=== PATIENT | female | born 1975 | race Caucasian/White ===

== ENCOUNTER 2021-01-01 11:00 | Emergency (ER) | payer BC ==
[~2021-01-01] VITALS: Ht 162.6 cm; Wt 77.1 kg
[2021-01-01] MEDS ORDERED: ONDANSETRON 4 MG/2 ML VIAL IM ONE (11:15)
[2021-01-01] MEDS ORDERED: HYDROMORPHONE 1 MG/1 ML DISP.SYRIN IM ONE (11:15)
[2021-01-01] MEDS ORDERED: HYDROMORPHONE 2 MG/1 ML DISP.SYRIN ONE (11:17)
[2021-01-01] MEDS ORDERED: ONDANSETRON 4 MG/2 ML VIAL ONE (11:17)
--- NOTE | 2021-01-01 11:19 | NUR ---
pt bib ra 85 from home co her j-tube coming out accidentally at home. pt reports that the stoma and the area around it is tender and pt does not want to be touched at this point. pt states will follow up with own pmd regarding j-tube placement. pt expectation of this visit is pain management.
--- NOTE | 2021-01-01 11:32 | NUR ---
Patient discharged to home in stable condition. Written and verbal after care instructions given. Patient verbalizes understanding of instructions. Stressed follow up or return to ER for worsening s/s.pt at the door to take the pt home.
[2021-01-01 11:33] VITALS: BP 109/81
== END 2021-01-01 11:46 | disposition home or self-care (01) ==
LOC: ER 11:00
DX: R10.9 Unspecified abdominal pain (principal); Z93.4 Other artificial openings of gastrointestinal tract status; R11.0 Nausea; Z86.69 Personal history of other diseases of the nervous system and sense organs
CPT/HCPCS: 96372 ×2; 99284; J1170; J2405; A4663

== ENCOUNTER 2021-07-07 00:41 | Emergency (ER) | payer BC ==
[~2021-07-07] VITALS: Ht 162.6 cm; Wt 81.6 kg
[2021-07-07] MEDS ORDERED: ONDANSETRON 4 MG/2 ML VIAL IV ONE ×2 (01:00→02:00)
[2021-07-07] MEDS ORDERED: HYDROMORPHONE 1 MG/1 ML DISP.SYRIN IV ONE ×3 (01:00→01:30)
--- NOTE | 2021-07-07 01:05 | NUR ---
Inserted chavez needle 19g in r chest portacat, ok'd by Dr. De La Garza.
[2021-07-07] MEDS ORDERED: ONDANSETRON 4 MG/2 ML VIAL ONE ×3 (01:08→02:12)
[2021-07-07] MEDS ORDERED: HYDROMORPHONE 1 MG/1 ML DISP.SYRIN ONE ×2 (01:08→01:13)
[2021-07-07 01:28] LABS: HEMATOCRIT 32.1 % (31.2-41.9); MEAN CORPUSCULAR HEMOGLOBIN 22.6 uug (24.7-32.8); MEAN CORPUSCULAR VOLUME 70.5 fL (75.5-95.3); PLATELET COUNT (AUTO) 469 K/uL (179-408)
[2021-07-07] MEDS ORDERED: TETRACAINE HCL 0.5% OPHT DROP 2 ML BOTTLE OP ONE (01:30)
[2021-07-07 01:31] LABS: BILIRUBIN,DIRECT 0.1 mg/dL (0.0-0.2); BILIRUBIN,TOTAL 0.2 mg/dL (0.2-1.0); CREATININE 0.7 mg/dL (0.6-1.3); POTASSIUM 3.6 mmol/L (3.5-5.1); TOTAL PROTEIN, SERUM 7.5 g/dL (6.4-8.2)
[2021-07-07] MEDS ORDERED: HYDROMORPHONE 2 MG/1 ML DISP.SYRIN ONE (01:33)
[2021-07-07] MEDS ORDERED: PROPARACAINE 0.5% OPHT DROP 15 ML BOTTLE ONE (01:39)
[2021-07-07] MEDS ORDERED: TETRACAINE HCL 0.5% OPHT DROP 2 ML BOTTLE ONE (01:40)
[2021-07-07] MEDS ORDERED: MORPHINE SULFATE 4 MG/1 ML DISP.SYRIN IV ONE ×2 (01:45→02:00)
[2021-07-07] MEDS ORDERED: MORPHINE SULFATE 2 MG/1 ML DISP.SYRIN ONE ×2 (01:51→02:09)
[2021-07-07] MEDS ORDERED: MORPHINE SULFATE 4 MG/1 ML DISP.SYRIN ONE ×2 (01:51→01:59)
[2021-07-07 01:54] LABS: NEUTROPHILS % (MANUAL) 0 % (42-75)
[2021-07-07] MEDS ORDERED: MORPHINE SULFATE 2 MG/1 ML DISP.SYRIN IV ONE (02:00)
--- NOTE | 2021-07-07 02:10 | NUR ---
19 guage chavez needle to right chest wall was d/c.
--- NOTE | 2021-07-07 02:23 | NUR ---
Patient does not wish to proceed with medical care recommended by Dr. De La Garza. Patient given information related to possible complications, up to and including , which could occur as a result of leaving the hospital at this time. Patient verbalizes understanding of risks involved due to leaving against medical advice. Patient has signed AMA form.
[2021-07-07 02:25] VITALS: BP 133/78
[2021-07-07] MEDS ORDERED: IV NORMAL SALINE 1000 ML BAG IV ONE (02:30)
== END 2021-07-07 02:26 | disposition left against medical advice (07) ==
LOC: ER 00:47
DX: R51.9 Headache, unspecified (principal); D75.839 Thrombocytosis, unspecified; H54.7 Unspecified visual loss; Z88.0 Allergy status to penicillin; Z88.8 Allergy status to other drugs, medicaments and biological substances; G90.50 Complex regional pain syndrome I, unspecified; G50.0 Trigeminal neuralgia
CPT/HCPCS: 36415; 70450; 80048; 80076; 85007; 85025; 96361; 96374; 96375; 96376; 99285; J1170 ×3; J2270 ×4; J2405 ×3; 70030-TC; A4663; J7030

== ENCOUNTER 2021-10-12 17:08 | Inpatient (IN) | payer BC ==
[~2021-10-12] VITALS: Ht 162.6 cm; Wt 81.6 kg
[2021-10-12] MEDS ORDERED: HYDROMORPHONE 1 MG/1 ML DISP.SYRIN IV ONE ×2 (17:30→18:30)
[2021-10-12] MEDS ORDERED: HYDROMORPHONE 1 MG/1 ML DISP.SYRIN ONE ×2 (17:48→18:37)
[2021-10-12 18:03] LABS: HEMATOCRIT 38.1 % (31.2-41.9); MEAN CORPUSCULAR HEMOGLOBIN 25.4 uug (24.7-32.8); MEAN CORPUSCULAR VOLUME 77.8 fL (75.5-95.3); PLATELET COUNT (AUTO) 385 K/uL (179-408)
[2021-10-12 18:14] LABS: ALANINE AMINOTRANSFERASE 14 U/L (14-59); ALKALINE PHOSPHATASE 95 U/L (50-136); ASPARTATE AMINOTRANSFERASE 13 U/L (15-37); BILIRUBIN,TOTAL 0.1 mg/dL (0.2-1.0); CARBON DIOXIDE 23 mmol/L (21-32); CHLORIDE 106 mmol/L (98-107); CREATININE 0.6 mg/dL (0.6-1.3); GLUCOSE 116 mg/dL (74-106); TOTAL PROTEIN, SERUM 7.5 g/dL (6.4-8.2); UREA NITROGEN, BLOOD 9 mg/dL (7-18)
[2021-10-12] MEDS ORDERED: SWABABLE VALVE TRANSFER SET EA MC ONE (18:14)
[2021-10-12] MEDS ORDERED: IV NORMAL SALINE 250 ML IV ONE (18:14)
[2021-10-12] MEDS ORDERED: IOHEXOL 350 100 ML INFUS..BTL ONE (18:14)
--- NOTE | 2021-10-12 18:45 | NUR ---
After CT scan, patient was tearful. "I think the burning pains from the contrast made it worse." per patient's verbalization. MD notified. Additional IV Dilaudid was given as ordered by .
[2021-10-12] MEDS ORDERED: LORAZEPAM 2 MG/1 ML VIAL ONE (18:53)
--- NOTE | 2021-10-12 19:04 | NUR ---
Patient is waiting for ultrasound imaging, tests' results and disposition, nursing SBAR given to BEN Lopez.
--- NOTE | 2021-10-12 19:07 | NUR ---
RECEIVED REPORT FROM BEN GARCIA. PT NOTED TO BE IN BED A/O X4, NO SOB OR LABORED BREATHING, AFEBRILE.
[2021-10-12] MEDS ORDERED: KETAMINE HCL 500 MG/10 ML INJ IV ONE ×2 (19:30→20:45)
[2021-10-12] MEDS ORDERED: KETAMINE HCL 500 MG/10 ML INJ ONE ×2 (19:32→20:49)
--- NOTE | 2021-10-12 19:40 | NUR ---
US (YUNIER) AT BEDSIDE.
--- NOTE | 2021-10-12 20:34 | NUR ---
DR. YOUNG SPOKE WITH JOSIANE FOR ADMISSION.
[2021-10-12] MEDS ORDERED: ENOXAPARIN SODIUM 80 MG/0.8 ML DISP.SYRIN SQ ONE ×2 (20:45→20:48)
[2021-10-12] MEDS ORDERED: CLONIDINE HCL 0.1 MG TABLET PO ONE (21:30)
[2021-10-12] MEDS ORDERED: CLONIDINE HCL 0.1 MG TABLET ONE (21:33)
[2021-10-12] MEDS ORDERED: PROM25TA15 PO (22:02)
[2021-10-12] MEDS ORDERED: CLON0.1T PO (22:02)
[2021-10-12] MEDS ORDERED: GABA600T12 PO (22:02)
[2021-10-12] MEDS ORDERED: METO-295 PO (22:02)
[2021-10-12] MEDS ORDERED: AMIT75TA2 PO (22:02)
[2021-10-12] MEDS ORDERED: KETAMINE PO (22:02)
[2021-10-12] MEDS ORDERED: ONDA4TAB5 PO (22:02)
--- NOTE | 2021-10-12 22:02 | NUR ---
GAVE REPORT TO BEN OLMOS.
[2021-10-12] MEDS ORDERED: DEXTROMETHORPHAN PO (22:11)
[2021-10-12] MEDS ORDERED: ACETAMINOPHEN 325 MG TABLET PO PRN (22:15)
[2021-10-12] MEDS ORDERED: GABAPENTIN 400 MG CAPSULE PO ONE (22:15)
[2021-10-12] MEDS ORDERED: ONDANSETRON 4 MG/2 ML VIAL IV PRN (22:15)
[2021-10-12] MEDS ORDERED: METOCLOPRAMIDE HCL 10 MG TABLET PO PRN (22:15)
[2021-10-12] MEDS ORDERED: MAGNESIUM HYDROXIDE 30 ML LIQUID UDC PO PRN (22:15)
--- NOTE | 2021-10-12 22:20 | NUR ---
ADMITTED ON TELE FLOOR UNDER JOSIANE, ALERT ORIENTED, SOB NO CHEST PAIN, TELE SINUS RHYTHM 95, EPISODE OF TACHY 111, PATIENT R UPPER ARM SWOLLEN, DX OF R ARM DVT, SEVERE PAIN, PATIENT HAS R CHEST CHERELLE CATH. CONT ON PAIN MANAGEMENT.
--- NOTE | 2021-10-12 22:29 | NUR ---
Pt. admitted to TELE , under care of Dr. JOSHUA Dx: RT upper extremity DVT and intractable pain Belongs List completed Pt admitted in stable condition, no SOB or labored breathing, denies any pain/discomfort upon admission.
[2021-10-12 22:44] VITALS: BP 147/86
[2021-10-12] MEDS: HYDROMORPHONE 1 MG/1 ML DISP.SYRIN IV PRN (23:06)
--- NOTE | 2021-10-13 | NUR ---
Assumed care of patient from BEN Oneill. Received patient lying in bed. AAOx4. In no apparent distress. Denies any SOB. Warm pack on right upper arm. Sinus tachy on tele with HR of 105/min. Post on right upper chest area intact. IV site on left AC intact and patent. Needs assessed and attended to. Continue to monitor.
[2021-10-13 00:22] VITALS: BP 118/55
[2021-10-13] MEDS: HYDROMORPHONE 1 MG/1 ML DISP.SYRIN IV PRN ×3 (02:23→10:05)
[2021-10-13 04:49] VITALS: BP 116/48
[2021-10-13] MEDS: PANTOPRAZOLE SODIUM 40 MG TABLET.DR PO SCH ×2 (05:53→07:10)
--- NOTE | 2021-10-13 06:53 | NUR ---
PATIENT ALERT ORIENTED, NO SOB NO CHEST PAIN, TELE MONITOR SINUS RHYTHM, CONT ON PAIN MANAGEMENT DUE R ARM DVT, CONT TO MONITOR.
[2021-10-13 07:07] LABS: HEMATOCRIT 35.4 % (31.2-41.9); MEAN CORPUSCULAR HEMOGLOBIN 25.3 uug (24.7-32.8); PLATELET COUNT (AUTO) 382 K/uL (179-408)
[2021-10-13 07:41] LABS: BILIRUBIN,TOTAL 0.2 mg/dL (0.2-1.0); CREATININE 0.6 mg/dL (0.6-1.3); MAGNESIUM 2.3 mg/dL (1.8-2.4); PHOSPHOROUS 3.6 mg/dL (2.5-4.9); TOTAL PROTEIN, SERUM 6.9 g/dL (6.4-8.2)
--- NOTE | 2021-10-13 08:00 | NUR ---
awake alert and oriented, denies of pain at this time, explained plan of care- verbalized understanding, safety measures maintained
[2021-10-13 08:51] LABS: THYROID STIMULATING HORMONE 1.243 mIU/mL (0.358-3.740)
--- NOTE | 2021-10-13 09:00 | NUR ---
seen by Lan Ramsey [employer] with orders-carried out
[2021-10-13] MEDS ORDERED: KETOROLAC TROMETHAMINE 15 MG INJ IVP ONE (09:15)
[2021-10-13] MEDS ORDERED: HYDROCODONE/APAP 5-325MG TABLET PO PRN (09:15)
[2021-10-13] MEDS: GABAPENTIN 300 MG CAPSULE PO SCH ×3 (09:43→16:50)
[2021-10-13] MEDS: ENOXAPARIN SODIUM 80 MG/0.8 ML DISP.SYRIN SQ SCH ×2 (09:45→21:25)
[2021-10-13] MEDS: CLONIDINE HCL 0.1 MG TABLET PO SCH ×2 (09:46→17:00)
[2021-10-13] MEDS: AMITRIPTYLINE HCL 50 MG TABLET PO SCH (09:55)
--- NOTE | 2021-10-13 10:05 | NUR ---
medicated for c/o right arm/shoulder 05/26, will continue to monitor
[2021-10-13 10:16] LABS: *URINE HCG, QUAL NEG (NEGATIVE)
[2021-10-13 11:45] VITALS: BP 122/65
[2021-10-13] MEDS: HYDROMORPHONE 2 MG/1 ML DISP.SYRIN IV PRN ×3 (14:16→22:39)
[2021-10-13 17:01] VITALS: BP 97/58
[2021-10-13] MEDS ORDERED: [UNRECOGNIZED DRUG - OTHER] PO PRN (17:15)
--- NOTE | 2021-10-13 17:46 | NUR ---
no distress noted, all needs attended and met, safety measures in place, call light within each
[2021-10-13 20:00] VITALS: BP 106/40
--- NOTE | 2021-10-13 20:21 | NUR ---
Patient in bed AALox4.No respiratory distress noted. On RA.C/o Rt arm mild pain.Applied arm compress on RT arm and elevated with pillow.Tolerated well.Iv patent and intact ion Left AC 20 g. Call light with in reach. Will continue to monitor.
[2021-10-14 00:49] VITALS: BP 109/59
[2021-10-14] MEDS: HYDROMORPHONE 2 MG/1 ML DISP.SYRIN IV PRN ×5 (02:47→21:16)
[2021-10-14 04:30] VITALS: BP 124/61
--- NOTE | 2021-10-14 06:13 | NUR ---
Remains AAOx4. Dilaudid 2mg IV every 3hrs PRN and [place] 5/325mg po every 6 hrs PRN given per order as well as hot compress provided for complain of righ arm pain and effective. SR to sinus tachy on tele with HR between 88-105/min. IV site on left upper arm intact and patent. Needs attended to and met. Safety measure maintained and call light within reached.
[2021-10-14] MEDS: GABAPENTIN 300 MG CAPSULE PO SCH ×3 (09:16→17:07)
[2021-10-14] MEDS: CLONIDINE HCL 0.1 MG TABLET PO SCH ×2 (09:16→17:08)
[2021-10-14] MEDS: AMITRIPTYLINE HCL 50 MG TABLET PO SCH ×2 (09:20→17:08)
[2021-10-14] MEDS: ENOXAPARIN SODIUM 80 MG/0.8 ML DISP.SYRIN SQ SCH ×2 (09:21→21:06)
[2021-10-14 11:39] VITALS: BP 116/59
[2021-10-14] MEDS ORDERED: KETOROLAC TROMETHAMINE 15 MG INJ IM ONE (13:15)
[2021-10-14 15:44] VITALS: BP 137/75
--- NOTE | 2021-10-14 19:00 | NUR ---
Pt's right arm pain managed with pain meds dilaudid as ordered. Dr pham here to see patient. Call light is within reach. IV on left f/a intact.
--- NOTE | 2021-10-14 19:45 | NUR ---
Received patient on bed, awake watching TV. No shortness of breath noted. Alert and oriented x4. No complain of pain at this time. With IV access at left arm, no signs of inflammation noted.
[2021-10-14 20:15] VITALS: BP 132/92
[2021-10-15] MEDS: HYDROMORPHONE 2 MG/1 ML DISP.SYRIN IV PRN ×6 (01:16→21:20)
[2021-10-15 04:18] VITALS: BP 124/76
--- NOTE | 2021-10-15 04:55 | NUR ---
checked patient in her room, asleep and snoring, no signs of any pain noted.
[2021-10-15] MEDS: PANTOPRAZOLE SODIUM 40 MG TABLET.DR PO SCH (06:11)
--- NOTE | 2021-10-15 06:30 | NUR ---
Patient sleeping, no signs of pain noted.
[2021-10-15 08:00] VITALS: BP 134/86
[2021-10-15] MEDS: ENOXAPARIN SODIUM 80 MG/0.8 ML DISP.SYRIN SQ SCH ×2 (08:53→21:04)
[2021-10-15] MEDS: GABAPENTIN 300 MG CAPSULE PO SCH ×3 (08:53→17:00)
[2021-10-15] MEDS: CLONIDINE HCL 0.1 MG TABLET PO SCH ×2 (08:53→17:00)
[2021-10-15 11:36] VITALS: BP 142/82
[2021-10-15] MEDS ORDERED: KETOROLAC TROMETHAMINE 15 MG INJ IVP PRN (14:00)
[2021-10-15 16:00] VITALS: BP 101/44
[2021-10-15] MEDS: AMITRIPTYLINE HCL 50 MG TABLET PO SCH (17:00)
--- NOTE | 2021-10-15 18:32 | NUR ---
The patient remained stable during the shift. No distress identified. kept call light within reach. seen by MD. PRN pain medication given as ordered. all needs attended. Safety measures maintained. will endorse to the next shift for continuity of care.
--- NOTE | 2021-10-15 19:15 | NUR ---
Patient on bed, awake, alert x4, no shortness of breath, no complaint of pain at this time.
[2021-10-15] MEDS: ATORVASTATIN 20 MG TABLET PO SCH (21:02)
--- NOTE | 2021-10-15 22:30 | NUR ---
Checked patient in her room, asleep and snoring.
[2021-10-16] MEDS: HYDROMORPHONE 2 MG/1 ML DISP.SYRIN IV PRN ×3 (04:32→12:55)
[2021-10-16] MEDS: PANTOPRAZOLE SODIUM 40 MG TABLET.DR PO SCH (05:43)
[2021-10-16 06:57] LABS: CREATININE 0.7 mg/dL (0.6-1.3); POTASSIUM 4.1 mmol/L (3.5-5.1)
--- NOTE | 2021-10-16 07:00 | NUR ---
Resting quietly in bed, pain medication effective, prune juice given for complaint of constipation. No BM noted.
[2021-10-16] MEDS: GABAPENTIN 300 MG CAPSULE PO SCH ×3 (09:15→16:13)
[2021-10-16] MEDS: CLONIDINE HCL 0.1 MG TABLET PO SCH ×2 (09:15→16:12)
[2021-10-16] MEDS: ENOXAPARIN SODIUM 80 MG/0.8 ML DISP.SYRIN SQ SCH ×2 (09:17→20:32)
[2021-10-16 12:00] VITALS: BP 104/63
[2021-10-16] MEDS ORDERED: KETOROLAC TROMETHAMINE 15 MG INJ IVP PRN (14:15)
[2021-10-16] MEDS ORDERED: HYDROCODONE/APAP 10-325 MG TABLET PO PRN (14:15)
[2021-10-16] MEDS ORDERED: KETOROLAC TROMETHAMINE 30 MG INJ IVP PRN (14:45)
--- NOTE | 2021-10-16 15:58 | NUR ---
Patient reported she may have yeast infection, she reports itchiness and swelling on her labia. MD made aware, ordered one time dose of Fluconazole 150mg po. Will continue to monitor.
[2021-10-16 16:00] VITALS: BP_SYST 123; BP_SYST 130; BP_DIAS 63; BP_DIAS 79
[2021-10-16 16:12] VITALS: BP 130/79
[2021-10-16] MEDS: ALPRAZOLAM 0.5 MG TABLET PO PRN ×2 (16:13→21:18)
[2021-10-16] MEDS ORDERED: FLUCONAZOLE 100 MG TABLET PO ONE (16:30)
[2021-10-16] MEDS: AMITRIPTYLINE HCL 50 MG TABLET PO SCH (17:17)
--- NOTE | 2021-10-16 18:26 | NUR ---
The patient remained stable during the shift. PRN pain medication given as ordered. MD switched iv pain med to po. Xanax given as ordered for anxiety, effective. Per patient she thinks po pain meds will not work, informed patient to wait for it to kick in, educated on relaxation techniques. kept call light within reach. All needs attended. Safety measures maintained. will endorse to the next shift for continuity of care.
[2021-10-16] MEDS: ATORVASTATIN 20 MG TABLET PO SCH (20:33)
--- NOTE | 2021-10-16 21:59 | NUR ---
Patient went AMA without waiting for her medications left in the Pharmacy. Pharmacist electron beam welder is willing to come before 2300 to get her medications from the Pharmacy but patient stated that she can not wait and left. Pediatrician/Medical Doctor Amber made aware. Addendum: 10/17/21 at 0150 by Kimberly Crews RN RN At 1999, patient was complaining of pain 10/10 around the Port-A-Cath area. RN offered Toradol injection, patient refused. RN then offered [place] 5/325 mg, however patient still refused. Patient stated that [place] and Toradol do not work in relieving the pain, and was requesting Dilaudid which was D/C by Ameena Mcfadden. RN notified prescribing MD Ameena Mcfadden, that patient is requesting Dilaudid, and has severe pain 10/10, is refusing all other new pain meds ordered. RN explained to patient that Dilaudid has been D/C'd already, and that it would be best for patient to try other pain meds as prescribed while waiting to see if Ameena Mcfadden will order a one time dose of Dilaudid; however patient refused to take any other meds. Ameena Mcfadden stated to give one does of Xanax instead, no Dilaudid order. RN notified the patient that no new Dilaudid order was provided and offered Xanax. Patient took Xanax, but still insisted Dilaudid. Charge Nurse was notified, and explained to patient that Ameena Mcfadden will not be ordering any Dilaudid. Patient stated that we are not properly taking care of her pain and decided to leave AMA. and Pediatrician/Medical Doctor made aware. Pharmacy electron beam welder stated that she will come before 2300 to give her medications, however patient did not want to wait and left AMA at 2200.
== END 2021-10-16 22:00 | disposition left against medical advice (07) | DRG 301 ==
LOC: ER 17:12 → TELE3 22:09 → MEDSURG3 10-14 14:25
PROVIDERS: ADMIT Nurse Practitioner Acute Care; ATTEND Nurse Practitioner Acute Care
DX: I82.A11 Acute embolism and thrombosis of right axillary vein (principal); E66.9 Obesity, unspecified; Z68.30 Body mass index [BMI] 30.0-30.9, adult; G89.4 Chronic pain syndrome; K31.84 Gastroparesis; M79.601 Pain in right arm; R07.89 Other chest pain; Z20.822 Contact with and (suspected) exposure to COVID-19
CPT/HCPCS: 36415; 70450; 71045; 71260; 83735; 84100; 84443; 84484; 84703; 85025; 85610; 85730; 93005; A4663; G0378; J1170; J1650; J1885; J2060; J3490; J7050; J8597; Q9967

== ENCOUNTER 2022-02-10 11:34 | Emergency (ER) | payer BC ==
[~2022-02-10] VITALS: Ht 162.6 cm; Wt 81.6 kg
[~2022-02-10 11:34] MED LIST: AMIT75TA2 PO; CLON0.1T PO; DEXTROMETHORPHAN PO; GABA600T12 PO; KETAMINE PO; METO-295 PO; ONDA4TAB5 PO; PROM25TA15 PO
--- NOTE | 2022-02-10 11:34 | NUR ---
DR Hernandez seen and evaluated the pt.
[2022-02-10] MEDS ORDERED: HYDROMORPHONE 1 MG/1 ML DISP.SYRIN IV ONE (11:45)
[2022-02-10] MEDS ORDERED: HYDROMORPHONE 1 MG/1 ML DISP.SYRIN ONE (11:56)
[2022-02-10 12:04] LABS: HEMATOCRIT 36.2 % (31.2-41.9); MEAN CORPUSCULAR HEMOGLOBIN 26.2 uug (24.7-32.8); MEAN CORPUSCULAR VOLUME 78.5 fL (75.5-95.3); PLATELET COUNT (AUTO) 386 K/uL (179-408)
[2022-02-10] MEDS ORDERED: IOHEXOL 300MG/ML 100 ML INFUS..BTL ONE (12:04)
[2022-02-10] MEDS ORDERED: IV NORMAL SALINE 250 ML IV ONE (12:04)
[2022-02-10] MEDS ORDERED: SWABABLE VALVE TRANSFER SET EA MC ONE (12:04)
[2022-02-10 12:09] LABS: CREATININE 0.6 mg/dL (0.6-1.3); POTASSIUM 3.9 mmol/L (3.5-5.1)
[2022-02-10 12:15] LABS: BILIRUBIN,TOTAL 0.8 mg/dL (0.2-1.0); TOTAL PROTEIN, SERUM 7.7 g/dL (6.4-8.2)
[2022-02-10] MEDS ORDERED: ONDANSETRON 4 MG/2 ML VIAL IV ONE (12:15)
[2022-02-10] MEDS ORDERED: KETAMINE HCL 500 MG/10 ML INJ IV ONE (12:45)
[2022-02-10] MEDS ORDERED: KETAMINE HCL 500 MG/10 ML INJ ONE (13:05)
--- NOTE | 2022-02-10 13:20 | NUR ---
Pt refused Ct scan, Dr Hernandez made aware.
[2022-02-10 13:35] VITALS: BP 122/68
--- NOTE | 2022-02-10 13:35 | NUR ---
IV removed. Catheter intact and site benign. Pressure and 4x4 gauze applied to site. No bleeding noted.
== END 2022-02-10 13:36 | disposition home or self-care (01) ==
LOC: ER 11:36
DX: R10.13 Epigastric pain (principal); R00.0 Tachycardia, unspecified; G89.4 Chronic pain syndrome; M32.9 Systemic lupus erythematosus, unspecified; Z93.4 Other artificial openings of gastrointestinal tract status; G50.0 Trigeminal neuralgia; K31.84 Gastroparesis; Z79.899 Other long term (current) drug therapy
CPT/HCPCS: 36415; 71045; 80053; 83690; 84484; 85025; 93005; 96374; 96375; 99284; J1170; J3490; Q9967

== ENCOUNTER 2022-05-05 15:12 | Emergency (ER) | payer BC ==
[~2022-05-05] VITALS: Ht 162.6 cm; Wt 88.9 kg
[2022-05-05] MEDS ORDERED: KETOROLAC TROMETHAMINE 15 MG INJ IVP ONE (16:15)
[2022-05-05] MEDS ORDERED: DEXAMETHASONE SOD PHOSPHATE 4 MG INJ IV ONE (16:15)
[2022-05-05] MEDS ORDERED: DEXAMETHASONE SOD PHOSPHATE 10 MG INJ ONE ×2 (16:43→16:49)
[2022-05-05] MEDS ORDERED: KETOROLAC TROMETHAMINE 15 MG INJ ONE (16:43)
[2022-05-05 16:47] LABS: CARBON DIOXIDE 24 mmol/L (21-32); CHLORIDE 104 mmol/L (98-107); CREATININE 0.7 mg/dL (0.6-1.3); GLUCOSE 125 mg/dL (74-106); HEMATOCRIT 37.3 % (31.2-41.9); MEAN CORPUSCULAR HEMOGLOBIN 27.3 uug (24.7-32.8); MEAN CORPUSCULAR VOLUME 81.5 fL (75.5-95.3); PLATELET COUNT (AUTO) 338 K/uL (179-408); POTASSIUM 4.1 mmol/L (3.5-5.1); UREA NITROGEN, BLOOD 7 mg/dL (7-18)
--- NOTE | 2022-05-05 17:00 | NUR ---
Pt arrived c/o of L sided sharp 'rib pain'. Presented with facial grimacing, guarding, withdrawal to touch and crying. Limited lung expansion d/t dyspnea. No sob, sPO2 98%. Rx ordered were administered. Pain was not alleviated after reassessment, MD made aware.
[2022-05-05] MEDS ORDERED: IOHEXOL 350 100 ML INFUS..BTL ONE (17:29)
[2022-05-05 17:37] LABS: *URINE HCG, QUAL NEGATIVE (NEGATIVE)
[2022-05-05] MEDS ORDERED: DIAZEPAM 10 MG/2 ML DISP.SYRIN IV ONE (18:00)
[2022-05-05] MEDS ORDERED: DIAZEPAM 10 MG/2 ML DISP.SYRIN ONE (18:10)
--- NOTE | 2022-05-05 18:16 | NUR ---
Patient stated that she only had a mild reaction to lorazepam one time and no allergic reaction to diazepam. Stated that she's always received Valium, prior to today's ER visit.
[2022-05-05] MEDS ORDERED: MORPHINE SULFATE 4 MG/1 ML DISP.SYRIN IV ONE (18:45)
[2022-05-05] MEDS ORDERED: CLONIDINE HCL 0.1 MG TABLET PO SCH (19:00)
[2022-05-05] MEDS ORDERED: ONDANSETRON 4 MG/2 ML VIAL IV PRN (19:00)
[2022-05-05] MEDS ORDERED: KETAMINE PO PRN (19:00)
[2022-05-05] MEDS ORDERED: METOCLOPRAMIDE HCL 10 MG TABLET PO PRN (19:00)
[2022-05-05] MEDS ORDERED: MORPHINE SULFATE 2 MG/1 ML DISP.SYRIN IV PRN (19:00)
[2022-05-05] MEDS ORDERED: ACETAMINOPHEN 325 MG TABLET PO PRN (19:00)
[2022-05-05] MEDS ORDERED: MORPHINE SULFATE 4 MG/1 ML DISP.SYRIN ONE ×2 (19:04→21:20)
[2022-05-05] MEDS ORDERED: HEPARIN SODIUM,PORCINE 5,000 UNITS/ML VIAL SQ SCH (21:00)
[2022-05-05] MEDS ORDERED: AMITRIPTYLINE HCL 25 MG TABLET PO SCH (21:00)
[2022-05-05] MEDS ORDERED: LIDOCAINE 5% PATCH TD ONE ×2 (21:15→21:20)
[2022-05-05] MEDS ORDERED: MORPHINE SULFATE 2 MG/1 ML DISP.SYRIN ONE (21:20)
--- NOTE | 2022-05-05 21:22 | NUR ---
Dr. Vogel was here and insturucted to give the pt 6mg morphine and lidocaine patch. and that he will discharge the pt home.
[2022-05-05] MEDS ORDERED: MORPHINE SULFATE 2 MG/1 ML DISP.SYRIN IV STA (21:38)
--- NOTE | 2022-05-05 22:22 | NUR ---
Patient discharged to home in stable condition. Written and verbal after care instructions given. Patient verbalizes understanding of instructions. Stressed follow up or return to ER for worsening s/s.
[2022-05-05 22:23] VITALS: BP 138/70
[2022-05-06] MEDS ORDERED: GABAPENTIN 400 MG CAPSULE PO SCH (09:00)
== END 2022-05-05 22:23 | disposition home or self-care (01) ==
LOC: ER 15:12
DX: R07.89 Other chest pain (principal); G90.50 Complex regional pain syndrome I, unspecified; K31.84 Gastroparesis; L93.0 Discoid lupus erythematosus; Z79.899 Other long term (current) drug therapy; Z88.0 Allergy status to penicillin; Z88.8 Allergy status to other drugs, medicaments and biological substances; Z93.4 Other artificial openings of gastrointestinal tract status; Z86.718 Personal history of other venous thrombosis and embolism
CPT/HCPCS: 99285; 96374; 71275; 96375; 71045; 80048; 84703; 85025; 84484 ×2; 36415; 93005; 96376; J1100 ×2; J3360; J1885; Q9967; J2270 ×3; A4663

== ENCOUNTER 2022-06-08 21:49 | Emergency (ER) | payer BC, OTHER ==
[~2022-06-08] VITALS: Ht 162.6 cm; Wt 82.6 kg
--- NOTE | 2022-06-08 23:00 | NUR ---
Faxed release of record form to Karly who is one of the nurse at [facility].
--- NOTE | 2022-06-08 23:34 | NUR ---
Dr. Ellis at bedside for MSE.
--- NOTE | 2022-06-08 23:35 | NUR ---
Chaperoned Dr. Ellis during examination.
[2022-06-08] MEDS ORDERED: HYDROMORPHONE 1 MG/1 ML DISP.SYRIN IM ONE (23:45)
[2022-06-08] MEDS ORDERED: HYDROMORPHONE 2 MG/1 ML DISP.SYRIN ONE (23:48)
--- NOTE | 2022-06-09 01:59 | NUR ---
Patient discharged to home in stable condition. Written and verbal after care instructions given. Patient verbalizes understanding of instructions. Stressed follow up or return to ER for worsening s/s. Patient out of ER with steady gait, no acute signs of distress, VSS, all belongings taken.
[2022-06-09 02:00] VITALS: BP 141/86
== END 2022-06-09 02:00 | disposition home or self-care (01) ==
LOC: ER 22:06
DX: L30.4 Erythema intertrigo (principal); M32.9 Systemic lupus erythematosus, unspecified; G50.0 Trigeminal neuralgia; Z93.4 Other artificial openings of gastrointestinal tract status; G89.29 Other chronic pain; Z79.899 Other long term (current) drug therapy
CPT/HCPCS: 99283; 93005; 96372; J1170; A4663